=== PATIENT | male | born 1935 | race Caucasian/White ===

== ENCOUNTER 2021-03-03 18:05 | Emergency (ER) | payer MEDICARE, OTHER ==
--- NOTE | 2021-03-03 20:45 | NUR ---
Pt's son called that he will just take patient back home.
--- NOTE | 2021-03-03 21:05 | NUR ---
Pt's son arrived to ER to transport patient back to [facility], using [facility]. Pt left without being seen.
== END 2021-03-03 21:12 | disposition left against medical advice (07) ==
LOC: ER 18:07 → EDBD 18:07 → ER 21:12
DX: Z53.21 Procedure and treatment not carried out due to patient leaving prior to being seen by health care provider (principal)